=== PATIENT | female | born 1970 | race Caucasian/White ===

== ENCOUNTER 2018-06-19 19:23 | Emergency (ER) | payer SELFPAY ==
[~2018-06-19] VITALS: Ht 167.6 cm; Wt 99.8 kg
--- NOTE | ~2018-06-19 | EKG ---
[place], [place] ELECTROCARDIOGRAM REPORT NAME: RICHIE GREEN UNIT #: [id number] ROOM: DOCTOR: EPIPHANY DRAFT REPORT BIRTHDATE: [birth year] [facility] Test Date: 2018-06-19 Test Time: 20:35:08 Pat Name: RICHIE GREEN Department: er Room: 18 Gender: F [employer] Teacher: : 1970 Requested By: LINDA CASE Order Number: [id number] Reading MD: Rah Norman MD Measurements Intervals [place] Rate: 96 P: 82 DC: 130 QRS: 64 QRSD: 103 T: -51 QT: 373 QTc: 472 Interpretive Statements Sinus rhythm Ventricular bigeminy Nonspecific repol abnormality, diffuse leads Baseline wander in lead(s) II Electronically Signed On 06-22-2018 8:41:34 PDT by Rah Norman MD CM:EKGRPT:ELECTROCARDIOGRAM REPORT [id number] LINDA HERNÁNDEZ DRAFT REPORT LINDA CASE DO
[~2018-06-19 19:23] MED LIST: AMINOPHYLLIN200 MG PO; DONNATAL1 TAB PO; FLUCONAZOLE100 MG PO; NAPROSYN500 MG PO; NORCO 325 MG-51 TAB PO; PARAFON FORTE500 MG PO; PRILOSEC40 MG PO; SIMVASTATIN80 MG PO; VERAPAMIL HCL180 M2 PT; XANAX0.5 MG; ZOFRAN4 MG PO; ZOLOFT100 MG PO
[2018-06-19 19:55] LABS: BASO # 0.1 10*3/uL (0.0-0.1); BASO % 0.5 % (0.0-1.0); EOS # 0.3 10*3/uL (0.0-0.4); EOS % 1.7 % (1.0-4.0); HEMATOCRIT 47.1 % (37.0-47.0); HEMOGLOBIN 16.7 g/dl (12.0-16.0); LYMPH # 4.5 10*3/uL (1.3-4.4); LYMPH % 30.8 % (27.0-41.0); MEAN CELL VOLUME 90.1 fl (81.0-99.0); MEAN CORPUSCULAR HGB 31.9 pg (27.0-31.0); MEAN CORPUSCULAR HGB CONC 35.5 g/dl (33.0-37.0); MEAN PLATELET VOLUME 9.9 fl (9.6-12.3); MONO # 1.2 10*3/uL (0.1-1.0); MONO % 7.9 % (3.0-9.0); NEUT # 8.6 10*3/uL (2.3-7.9); NEUT % 58.8 % (47.0-73.0); PLATELET COUNT AUTOMATED 314 10*3/uL (130-400); RED BLOOD COUNT 5.23 10*6/uL (4.10-5.10); RED CELL DISTRI WIDTH 11.6 % (0-14.5); WHITE BLOOD COUNT 14.7 10*3/uL (4.8-10.8)
[2018-06-19 20:05] LABS: BILIRUBIN NEGATIVE (NEGATIVE); BLOOD NEGATIVE (NEGATIVE); CLARITY SL CLOUDY (CLEAR); COLOR YELLOW (YELLOW); GLUCOSE NEGATIVE (NEGATIVE); KETONE TRACE (NEGATIVE); LEUKO ESTERASE TRACE (NEGATIVE); NITRITE NEGATIVE (NEGATIVE); SPECIFIC GRAVITY 1.025 (1.005-1.030)
[2018-06-19 20:13] LABS: ALBUMIN 3.8 gm/dl (3.1-4.5); ALKALINE PHOSPHATASE 80 U/L (45-117); BUN 11 mg/dl (7-24); CHLORIDE 105 mmol/L (98-107); CREATININE 0.86 mg/dL (0.55-1.02); LIPASE 233 U/L (73-393); POTASSIUM 3.2 mmol/L (3.5-5.1); SGOT/AST 19 IU/L (3-35); SGPT/ALT 32 U/L (12-78); SODIUM 141 mmol/L (136-145); TOTAL PROTEIN 8.1 gm/dL (6.4-8.2)
[2018-06-19 20:19] LABS: BACTERIA TRACE
[2018-06-19 20:20] LABS: CALCIUM OXALATE CRYSTALS 3+; EPITHELIAL CELLS 45-50; MUCOUS TRACE; RBC 0-2 rbc/hpf (0-2)
== END 2018-06-19 23:24 | disposition home or self-care (01) ==
LOC: ED 19:23
PROVIDERS: Student in an Organized Health Care Education/Training Program
DX: R10.9 Unspecified abdominal pain (principal); F10.10 Alcohol abuse, uncomplicated; Z88.8 Allergy status to other drugs, medicaments and biological substances; Z79.899 Other long term (current) drug therapy

== ENCOUNTER 2019-09-22 15:33 | Emergency (ER) | payer OTHER ==
[~2019-09-22] VITALS: Ht 167.6 cm; Wt 102.1 kg
[2019-09-22] MEDS ORDERED: METHOCARBAMOL500 M1 PO (16:25)
== END 2019-09-22 18:07 | disposition home or self-care (01) ==
LOC: ED 15:33
DX: T14.8XXA Other injury of unspecified body region, initial encounter (principal); R51 Headache; M79.10 Myalgia, unspecified site; I10 Essential (primary) hypertension; E78.00 Pure hypercholesterolemia, unspecified; F17.200 Nicotine dependence, unspecified, uncomplicated; Z88.1 Allergy status to other antibiotic agents; Z79.899 Other long term (current) drug therapy; V49.9XXA Car occupant (driver) (passenger) injured in unspecified traffic accident, initial encounter; Y93.89 Activity, other specified; Y92.89 Other specified places as the place of occurrence of the external cause; Y99.8 Other external cause status